=== PATIENT | male | born 1985 | race Caucasian/White ===

== ENCOUNTER 2019-03-01 12:45 | Emergency (ER) | payer OTHER ==
[2019-03-01] MEDS ORDERED: NS 1,000 ML IV ONE ×2 (13:10→15:45)
--- NOTE | 2019-03-01 13:17 | EDPHY ---
HPI/HX/ROS/PE/MDM Narrative: CHIEF COMPLAINT: "I have pneumonia." HPI: The patient is a 33-year-old male with no significant past medical history. He has been sick for approximately 1 week with some worsening over the last few days. He describes feeling subjective fever and nonproductive cough as well as shortness of breath. He presented to his primary care physician this morning apparently diagnosed him with pneumonia via chest x-ray and sent him to the emergency department to "evaluate for sepsis."The patient describes generalized weakness and shortness of breath but denies any pain. He denies syncope, vomiting, diarrhea or sore throat. No recent travel. REVIEW OF SYSTEMS: Aside from elements discussed in the HPI, a comprehensive 10-point review of systems was reviewed and is negative. PMH: Patient denies, states "no physical problems" SOCIAL HISTORY: PhD student. Single. PHYSICAL EXAM: General:Patient is alert, in no acute distress. ENT:Eyes are normal to inspection. ENT inspection normal. Neck: Normal inspection. Full range of motion. Respiratory: Mildly tachypneic. No respiratory distress. Breath sounds normal bilaterally. Cardiovascular: Regular rate and rhythm. Strong peripheral pulses. Normal cap refill. Abdomen:The abdomen is nontender to palpation. There are no peritoneal signs. There are normal bowel sounds. Back: Normal to inspection. No tenderness to palpation. Skin: Normal color. No rash. Warm and dry. Extremities: Normal appearance. Full range of motion. Neuro: Oriented x3. Normal motor function. Normal sensory function. ED Course: 15:[address] Paredes, radiologist. CTA negative for pneumonia or pulmonary embolism. He does report there was a suboptimal contrast bolus performed during the scan, see report for details. MDM: This is a young healthy male with complaints of SOB. He was diagnosed with PNA as an outpatient, but CXR and CTA in the ED do not show PNA. He does have an elevated WBC which is his only real abnormality, and a cough, so I suspect this likely represents a viral bronchitis type picture. There is no evidence of PE, ACS, CHF. On re-evaluation he is ambulatory without symptoms and his vital signs have normalized. The patent has asked to be discharged home. I cautioned him to return to the ED for any worsening of condition. - Data Points Imaging Results: Imaging Impressions Chest X-Ray 03/01/19 13:15 Impression: 1. Hypoventilation, mild bronchitis, and bibasilar atelectasis. 2. No pneumonia or effusion. Chest/Thorax CTA 03/01/19 13:56 Impression: 1. No evidence of central pulmonary embolus using CT protocol. However, the contrast enhancement of the pulmonary arterial system is suboptimal. It is difficult to rule out small peripheral subsegmental emboli. 2. Subsegmental atelectasis at the lung bases and lingula. 3. Mild splenomegaly. Findings discussed with Margarito Reeves MD at 15:02 hour, 03/01/2019. Laboratory Results: Laboratory Results 03/01/19 13:23 03/01/19 13:23 03/01/19 03/01/19 03/01/19 16:17 13:23 13:23 WBC RBC Hgb Hct MCV MCH MCHC RDW Plt Count MPV Neut % (Auto) Lymph % (Auto) Steele % (Auto) Eos % (Auto) Baso % (Auto) Nucleat RBC Rel Count Absolute Neuts (auto) Absolute Lymphs (auto) Absolute Monos (auto) Absolute Eos (auto) Absolute Basos (auto) Absolute Nucleated RBC Immature Gran % Immature Gran # VBG Lactic Acid Sodium Potassium Chloride Carbon Dioxide Anion Gap BUN Creatinine Estimated GFR Glucose Calcium POC Troponin I 0.00 ng/mL ng/mL (0.00-0.08) Nasal Influenza A PCR NEGATIVE FOR FLU A NEGATIVE FOR FLU A (NEGATIVE) (NEGATIVE) Nasal Influenza B PCR NEGATIVE FOR FLU B NEGATIVE FOR FLU B (NEGATIVE) (NEGATIVE) RSV (PCR) NEGATIVE FOR RSV (NEGATIVE) 03/01/19 03/01/19 03/01/19 13:23 13:23 13:23 WBC 19.89 10^3/uL H 10^3/uL (3.80-9.50) RBC 5.50 10^6/uL 10^6/uL (4.40-6.38) Hgb 16.2 g/dL g/dL (13.7-17.5) Hct 44.0 % % (40.0-51.0) MCV 80.0 fL L fL (81.5-99.8) MCH 29.5 pg pg (27.9-34.1) MCHC 36.8 g/dL H g/dL (32.4-36.7) RDW 12.1 % % (11.5-15.2) Plt Count 166 10^3/uL 10^3/uL (150-400) MPV 9.5 fL fL (8.7-11.7) Neut % (Auto) 87.2 % H % (39.3-74.2) Lymph % (Auto) 7.2 % L % (15.0-45.0) Steele % (Auto) 4.7 % % (4.5-13.0) Eos % (Auto) 0.3 % L % (0.6-7.6) Baso % (Auto) 0.2 % L % (0.3-1.7) Nucleat RBC Rel Count 0.0 % % (0.0-0.2) Absolute Neuts (auto) 17.34 10^3/uL H 10^3/uL (1.70-6.50) Absolute Lymphs (auto) 1.44 10^3/uL 10^3/uL (1.00-3.00) Absolute Monos (auto) 0.93 10^3/uL H 10^3/uL (0.30-0.80) Absolute Eos (auto) 0.06 10^3/uL 10^3/uL (0.03-0.40) Absolute Basos (auto) 0.04 10^3/uL 10^3/uL (0.02-0.10) Absolute Nucleated RBC 0.00 10^3/uL 10^3/uL (0-0.01) Immature Gran % 0.4 % % (0.0-1.1) Immature Gran # 0.08 10^3/uL 10^3/uL (0.00-0.10) VBG Lactic Acid 1.8 mmol/L mmol/L (0.7-2.1) Sodium 137 mEq/L mEq/L (135-145) Potassium 3.9 mEq/L mEq/L (3.5-5.2) Chloride 105 mEq/L mEq/L (97-110) Carbon Dioxide 23 mEq/l mEq/l (22-31) Anion Gap 9 mEq/L mEq/L (6-14) BUN 9 mg/dL mg/dL (7-23) Creatinine 1.0 mg/dL mg/dL (0.7-1.3) Estimated GFR > 60 Glucose 106 mg/dL H mg/dL (70-100) Calcium 9.4 mg/dL mg/dL (8.5-10.4) POC Troponin I Nasal Influenza A PCR Nasal Influenza B PCR RSV (PCR) Medications Given: Discontinued Medications Albuterol/Ipratropium (Duoneb) 3 ml IH EDNOW ONE Stop: 03/01/19 15:46 Last Admin: 03/01/19 16:09 Dose: 3 ml Sodium Chloride (Ns) 1,000 mls @ 0 mls/hr IV EDNOW ONE; Wide Open PRN Reason: Protocol Stop: 03/01/19 13:11 Last Admin: 03/01/19 13:21 Dose: 1,000 mls Sodium Chloride (Ns) 1,000 mls @ 0 mls/hr IV ONCE ONE; Wide Open PRN Reason: Protocol Stop: 03/01/19 15:46 Last Admin: 03/01/19 16:09 Dose: 1,000 mls Point of Care Test Results: Chemistry 03/01/19 16:17 POC Troponin I 0.00 ng/mL ng/mL (0.00-0.08) General Time Seen by Provider: 03/01/19 13:05 Initial Vital Signs: Initial Vital Signs Temperature (C) 36.9 C 03/01/19 12:46 Heart Rate 123 H 03/01/19 12:46 Respiratory Rate 28 H 03/01/19 12:46 Blood Pressure 128/94 H 03/01/19 12:46 O2 Sat (%) 93 03/01/19 12:46 O2 Delivery Mode Room Air Allergies/Adverse Reactions: No Known Allergies Allergy (Unverified 05/19/16 07:31) Home Medications: Medication Instructions Recorded Dextroamphetamine/Amphetamine 10 mg PO 05/19/16 [Dextroamp-Amphet ER 10 mg Cap] Vilazodone HCl [Viibryd] 10 mg PO 05/19/16 Departure - Departure Disposition: Home, Routine, Self-Care Clinical Impression: Fever Qualifiers: Fever type: unspecified Qualified Code(s): R50.9 - Fever, unspecified Condition: Good Instructions: Fever in Adults (ED) Additional Instructions: Discontinue your antibiotics. Use ibuprofen and Tylenol as needed for fever and body aches. Follow up with your primary care physician within 2-3 days for reevaluation. Drink plenty of fluids. Return to the emergency department for high fever, severe headache or neck pain , difficulty breathing, chest pain, abdominal pain, rash or other worsening of condition. Referrals: Patrick Lawton DO [Doctor of Osteopathy] - As per Instructions Report Scribed for: Margarito Reeves Report Scribed by: Hortensia Gutierrez Date of Report: 03/01/19 Time of Report: 17:13
[2019-03-01 13:32] LABS: PLATELET COUNT 166 10^3/uL (150-400)
[2019-03-01] MEDS ORDERED: IOPAMIDOL (ISOVUE 370) 100 ML BTL IV ONE (14:05)
[2019-03-01] MEDS ORDERED: IPRATROPIUM/ALBUTEROL 3 ML DEYVIAL IH ONE (15:45)
[2019-03-01 16:09] VITALS: BP 122/84
== END 2019-03-01 17:26 | disposition home or self-care (01) ==
DX: R50.9 Fever, unspecified (principal); J40 Bronchitis, not specified as acute or chronic; R16.1 Splenomegaly, not elsewhere classified; E86.9 Volume depletion, unspecified
CPT/HCPCS: 84484-ER; Q9967